=== PATIENT | female | born 2000 | race Caucasian/White ===

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

== ENCOUNTER 2019-01-16 14:25 | Observation (INO) | payer MEDICAID, SELFPAY ==
[2019-01-16 14:28] VITALS: BP 132/70; PULSE 90; RESP 16; TEMP 36.2; O2SAT 98
[2019-01-16 15:10] LABS: Abs Immature Grans 0.01 k/cumm (0.0-0.09); Absolute Basophil Count 0.02 k/cumm (0.0-0.2); Absolute Eosinophil Count 0.02 k/cumm (0.0-0.7); Absolute Lymphocyte Count 1.25 k/cumm (1.2-3.4); Absolute Neutrophil Count 4.35 k/cumm (1.2-6.7); Basophils % 0.3; Eosinophils % 0.3; HCT 36.1 % (36.0-46.0); HGB 11.4 g/dL (12.0-15.5); Immature Grans % 0.2; Lymphocytes % 19.7; Mean Corp. HGB Concentration 31.6 g/dL (32.0-36.0); Mean Corpuscular Volume 72.8 fL (80-95); Neutrophils % 68.5; Platelet Count 333 x1000/uL (130-400); RBC 4.96 m/cumm (4.00-5.20); RBC Distribution Width 19.3 % (11.7-14.6); White Blood Cell Count 6.35 k/cumm (4.4-10.8)
[2019-01-16 15:19] LABS: ALT 10 U/L (14-59); AST 12 U/L (15-37); Albumin 4.4 g/dL (3.4-5.0); Alkaline Phosphatase 42 U/L (46-116); Anion Gap 11.7 mmol/L (3-11); BUN 7 mg/dL (7-18); Bilirubin, Total 0.5 mg/dL (0.2-1.0); CO2 24.3 mmol/L (21.0-32.0); CREATININE 0.76 mg/dL (0.55-1.02); Calcium 9.2 mg/dL (8.5-10.1); Chloride 106 mmol/L (98-107); Glucose 86 mg/dL (74-106); Potassium 3.8 mmol/L (3.5-5.1); Sodium 142 mmol/L (136-145); Total Protein 7.7 g/dL (6.4-8.2)
--- NOTE | 2019-01-16 15:19 | ED.GENADUL_ITS ---
Discharge Plan Disposition Patient Disposition: [facility] INPATIENT Discharge Details Chief Complaint: DentalOral Clinical Impression: Acute suppurative parotitis, Cellulitis of face, Cellulitis of neck Admit Date/Time: 01/16/19 16:42 Admit Provider: Hernandez Coy Attending Provider: Hernandez Coy Primary Care Provider: Deondre Marion ED Provider: Jerel Torres Medical Decision Making <LIOR Figueroa Last Filed: 01/16/19 21:16> Patient is a 18-year-old female presenting today with chief complaint of left- sided facial pain and swelling. She reports that she began having pain on the left side of the neck just off of the mandibular angle 2 to 3 days ago. Since that time, the pain has progressively been increasing. She reports the pain is maximal when opening her mouth. Denies any pain with swallowing. Denies any fevers or chills. States yesterday she noted a small amount of swelling on the left side of her face but this greatly increased throughout the course the day today. Denies any pain when chewing, no dental pain. On exam, she has notable swelling on the left side of her face. This area is soft and fluctuant. Appears most consistent with parotiditis, no erythema or warmth. However, the pain is maximal more on her neck than over the parotid gland. With this, and the patient's pain with opening her mouth, I am concerned for possible abscess and feel that imaging is appropriate. She appears nontoxic, exam is otherwise benign. Vital signs within normal limits. UPT negative. Labs reviewed no significant abnormality noted. At the end of my shift, care transitioned to Jerel Torres PA-C with imaging pending. <LIOR Galeas - Last Filed: 01/16/19 22:00> This is a nontoxic-appearing 18-year-old female whom I received in signout from Susan Cheney PA-C at shift change. See her note for complete HPI and PE details. In brief, patient here for acute onset of left-sided facial swelling and tenderness. She denies any fevers. Her physical exam is concerning for focal tenderness along the inferior mandible and proximal lateral aspect of the neck. Her work-up here in the emergency department is significant for a CT scan of her head and neck which demonstrates findings concerning for left lateral neck/facial cellulitis with likely associated left parotiditis. She has no white count on her labs. No fever here. Up-to-date recommends aggressive IV therapy for roughly 48 hours and monitor for clinical response inpatient. Discussed these findings with the hospitalist Dr. Pedraza. He will admit at this time. Patient made aware. Unasyn 3 g IV given. HPI <LIOR Figueroa - Last Filed: 01/16/19 21:16> General Mode of arrival: ambulatory . Date/Time Provider Initiated Documentation: 01/16/19 14:41 . Limitations to Documentation: no limitations . Information obtained by: patient and RN notes reviewed . History of Present Illness 18 year old F presents to the emergency department with the chief complaint of left sided facial and neck pain, described as severe, with intensity rated at 8. Quality is described as aching, and is localized to the face and neck. Patient reports no radiation. Patient started experiencing this day(s) (3) and it has been constant (progressively worsening). No relieving factors improve symptom(s), No exacerbating factors reported . Patient notes no other symptoms.; denies diaphoresis, fever/chills, headaches, loss of appetite, nausea/vomiting, rash and shortness of breath. Patient did receive the following treatments prior to arrival, none Related Data Home Medications Medication Instructions Recorded Confirmed olanzapine 2.5 mg PO DAILY 01/16/19 01/16/19 Allergies Allergy/AdvReac Type Severity Reaction Status Date / Time No Known Allergies Allergy Unverified 01/16/19 14:31 General Stated Complaint: DentalOral CHARISMA: 4 Review of Systems <LIOR Figueroa - Last Filed: 01/16/19 21:16> Constitutional Constitutional: Reports as per HPI, Denies chills, Denies fatigue, Denies fever(s), Denies headache(s) and Denies poor appetite Eyes Eyes: Denies change in vision and Denies irritation ENT Ears, Nose, Mouth, and Throat: Reports as per HPI, Denies change in voice, Reports dental pain, Denies dysphagia, Denies vertigo, Denies dizziness, Denies dry mouth, Denies ear discharge, Denies otalgia, Reports facial pain, Denies headache(s), Denies hoarseness, Denies lip swelling, Denies mouth lesions, Denies mouth pain, Denies nasal congestion, Reports neck mass (feels a bump left side of neck), Reports neck pain, Denies odynophagia and Denies sore throat Cardiovascular Cardiovascular: Reports as per HPI and Denies chest pain Respiratory Respiratory: Reports as per HPI and Denies cough Gastrointestinal Gastrointestinal: Reports as per HPI, Denies dysphagia, Denies nausea, Denies odynophagia and Denies vomiting Musculoskeletal Musculoskeletal: Reports neck pain Integumentary/Breasts Skin/Breast: Reports as per HPI, Denies erythema, Denies rash and Denies skin pain Neurologic Neurologic: Reports as per HPI, Denies vertigo, Denies dizziness and Denies headache(s) Endocrine Endocrine: Denies fatigue Allergic/Immunologic Allergic/Immunologic: Denies lip swelling PFSH <LIOR Figueroa - Last Filed: 01/16/19 21:16> Medical History Depression (Chronic) Mood swings (Acute) Surgical History No significant past surgical history (Acute) Social History Smoking/Tobacco Use Status: Current every day Tobacco Type: cigarettes Years smoked: 3 Alcohol Intake: current Alcohol Intake frequency: holidays/special occasions only Drug use: Occasionally Substance use type: marijuana Do you feel safe at home: Yes Do you feel safe in your relationship?: Yes Exam <LIOR Figueroa - Last Filed: 01/16/19 21:16> Const General: cooperative, healthy appearing, comfortable, no acute distress, well developed and well groomed Nutritional Appearance: average body habitus and well nourished Orientation: alert and awake [facility] Head: normal to inspection, normocephalic and atraumatic Ears: hearing grossly normal bilaterally, external ears normal and TM's normal bilaterally General nose exam: external nose normal and nares normal Face and sinus: abnormal facial exam, sinuses nontender, face asymmetric, no crepitus, no ecchymosis, no erythema, fluctuance, tenderness and No dry mucous membranes Mouth: oral mucosae normal, lip normal, tongue normal, salivary ducts normal, oropharynx normal, normal salivary ducts, no trismus and No restricted motion Teeth and gingiva: dentition normal and gingiva normal Throat: posterior oropharynx abnormal (left tonsil is slightly larger than right), tonsils normal and uvula midline Eyes General: appearance normal, both eyes and all related structures Neck Neck: normal visual inspection, full ROM, supple, no anterior neck swelling and lymphadenopathy Resp Effort & Inspection: normal respiratory effort, able to speak in complete sentences and no respiratory distress Auscultation: clear to auscultation bilaterally, no rales, no rhonchi and no wheezes Cardio Rate: regular rate Rhythm: regular rhythm Heart Sounds: S1 normal and S2 normal Skin General skin exam: no rashes or lesions noted Trauma: no lacerations or abrasions Neuro General: alert and awake Cognition: normal cognition Speech: speech normal Gait: normal gait Psych Appearance: grossly normal and well kempt Mental Status: mental status grossly normal Speech and Movement: speech and movement normal Course <LIOR Figueroa - Last Filed: 01/16/19 21:16> Vital Signs Vital signs: Vital Signs Temperature 36.2 C L 01/16/19 14:28 Pulse 90 01/16/19 14:28 Respiratory Rate 16 01/16/19 14:28 Blood Pressure 132/70 01/16/19 14:28 Pulse Oximetry 98 01/16/19 14:28 Temperature 36.2 C L 01/16/19 14:28 Temperature Source Temporal Artery Scan 01/16/19 14:28 Pulse 90 01/16/19 14:28 Respiratory Rate 16 01/16/19 14:28 Respiratory Effort Non-Labored 01/16/19 14:28 Blood Pressure 132/70 01/16/19 14:28 Blood Pressure Position Sitting 01/16/19 14:28 Pulse Oximetry 98 01/16/19 14:28 Oxygen Delivery Method Room Air 01/16/19 14:28 Oxygen Flow Rate 0 01/16/19 14:28 Pain Level 8 01/16/19 14:28 Lab/Test Results Lab/Test Results: Laboratory Tests Range/Units 01/16/19 15:00 WBC (4.4-10.8) k/cumm 6.35 RBC (4.00-5.20) m/cumm 4.96 Hgb (12.0-15.5) g/dL 11.4 L Hct (36.0-46.0) % 36.1 MCV (80-95) fL 72.8 L MCH (27.0-33.0) pg 23.0 L MCHC (32.0-36.0) g/dL 31.6 L RDW (11.7-14.6) % 19.3 H Plt Count (130-400) x1000/uL 333 MPV (8.0-11.0) fL 9.0 Immature Gran % 0.2 Neutrophils % 68.5 Lymphocytes % 19.7 Monocytes % 11.0 Eosinophils % 0.3 Basophils % 0.3 Absolute Neutrophils (1.2-6.7) k/cumm 4.35 Absolute Lymphocytes (1.2-3.4) k/cumm 1.25 Absolute Monocytes (0.11-0.7) k/cumm 0.70 Absolute Eosinophils (0.0-0.7) k/cumm 0.02 Absolute Basophils (0.0-0.2) k/cumm 0.02 POC- Test(urine) Negative Sign Out <LIOR Figueroa - Last Filed: 01/16/19 21:16> Sign Out Data: Sign Out Comment: Care transitioned to Jerel Torres PA-C with imaging pending. Last updated by Susan Cheney PA at 01/16/19 16:01
[2019-01-16 15:36] LABS: Anisocytosis 2+; Diff Comment RBC Morph Reviewed; Microcytosis 3+
[2019-01-16] MEDS: Omnipaque 350 MG/ML 100 ML BTL IV (15:47)
--- NOTE | 2019-01-16 15:48 | DI.CT_ITS ---
EXAM: CT NECK W CLINICAL HISTORY: left sided facial swelling, pain in left side of n TECHNIQUE: Imaging Protocol: Axial computed tomography images with coronal and sagittal reformatted images were created and reviewed CONTRAST MATERIAL: Intravenous: Omnipaque 350 Contrast volume:100 mL contrast route:IV - Oral: No COMPARISON: No exams were available for comparison FINDINGS: Parotids/submandibular/thyroid gland: The left parotid gland shows heterogeneous enhancement and enl argement. The right parotid gland and submandibular glands are unremarkable. Lymphadenopathy: There is scattered lymph nodes seen along the level one to level three all measurin g less than 8 mm in short axis diameter which are physiologic in nature. Carotids/Jugular: Within normal limits. Soft tissues: The floor the mouth is unremarkable. The epiglottis and vocal cords are within normal limits. Images through both lung apices are unremarkable. There is fat stranding seen in the soft tis sues of the left lateral face and neck extending superiorly to the left periauricular region. No foc al fluid collection is seen to suggest an abscess. The pharynx, larynx, trachea and retropharyngeal space are all unremarkable. Lung apices are clear. The thyroid gland appears unremarkable. IMPRESSION: 1. Findings suggesting cellulitis of the left face and neck. 2. Heterogeneous enhancement and enlargement of the left parotid gland suspicious for parotiditis. 3. No evidence of an abscess. DATA REPOSITORY: All CT scans at this facility are submitted to the National Radiology Data Registry (NRDR) Dose Index Registry (DIR) with the [employer] ([employer]). RADIATION OPTIMIZATION: All CT scans at this facility use at least one of these dose optimization te chniques: automated exposure control; mA and/or kV adjustment per patient size (includes targeted exa ms where dose is matched to clinical indication); or iterative reconstruction.
[2019-01-16] MEDS: Normal Saline 1,000 ML 1000 ML IV (16:09)
[2019-01-16] MEDS: Ibuprofen 600 MG TAB PO (16:09)
[2019-01-16] MEDS: Acetaminophen 500 MG TAB 1000 MG PO (16:09)
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
[2019-01-16] MEDS: AMPICILLIN/SULBACTAM 3 GM in Normal Saline 100 ML IVPB (16:56)
[2019-01-16 18:15] VITALS: BP 121/67; PULSE 63; RESP 16; O2SAT 98
[2019-01-16 18:24] VITALS: BP 127/68; PULSE 98; RESP 16; TEMP 36.5; O2SAT 100
--- NOTE | 2019-01-16 19:47 | HPE_ITS ---
Date of service: 01/16/19 Time of Service: 17:30 Assessment and Plan Assessment and plan (1) Parotiditis: Status: Acute Assessment and plan: Continue Zosyn. Repeat CBC tomorrow morning. (2) Depression: Status: Chronic Assessment and plan: With anxiety. She has suffered significant loss. She is interested in finding a therapist. Continue Olanzapine. Help connect with resources in the community. (3) Nicotine dependence: Status: Acute Assessment and plan: Nicotine patch and inhaler PRN. Encourage smoking cessation. (4) DVT prophylaxis: Status: Acute Assessment and plan: Not indicated in this 18 year old ambulatory patient. (5) Discharge planning issues: Status: Acute Assessment and plan: She is a FULL code. This case was discussed with Dr. Coy who is in agreement. History of Present Illness History of Present Illness Chief Complaint: Left facial/jaw pain Narrative: Bronwyn is a very pleasant 18 year old female with a past medical history of depression and anxiety who presented to the ED with reports of left face/nec k/jaw pain, especially with opening and closing her mouth and swelling to her left face/neck. The discomfort began 2-3 days prior to her presentation. She denies any dental pain, she has been eating and drinking with no increased pain. She denies fevers or chills. In the ED, her labs did not show leukocytosis. She had a CT which revealed left lateral neck/face cellulitis with left parotiditis. She was given a dose of unasyn and admitted to the med/surg floor for further evaluation and management. She denied any other concerns such as headaches, dizziness, shortness of breath, coughing, wheezing, chest pain, palpitations, nausea, vomiting or diarrhea. She has been struggling with depression and anxiety and has recently been restarted on Olanzapine by her PCP. She reports suffering significant loss, her sister of a drug overdose in 07/2018, her friend within the last couple of m [place], both of drug overdoses. She also reports finding her father at age 14, he of a heart attack. She is interested in getting connected with a therapist. Review of Systems All systems reviewed & are unremarkable except as noted in HPI and below [facility] Medical History Depression (Chronic) Mood swings (Acute) Surgical History No significant past surgical history (Acute) Social History Smoking/Tobacco Use Status: Current every day Tobacco Type: cigarettes Years smoked: 3 Alcohol Intake: current Alcohol Intake frequency: holidays/special occasions only Drug use: Occasionally Substance use type: marijuana Do you feel safe at home: Yes Do you feel safe in your relationship?: Yes Meds Home Medications and Allergies Home Medications Medication Instructions Recorded Confirmed Type olanzapine 2.5 mg PO DAILY 01/16/19 01/16/19 History Allergies Allergy/AdvReac Type Severity Reaction Status Date / Time No Known Allergies Allergy Unverified 01/16/19 14:31 Exam Narrative Exam Narrative: General: 18 year old female, laying in stretcher, in NAD. Alert and oriented, pleasant and cooperative, in NAD. HEENT: left lateral neck along jaw line with swelling, no fluctuance, no significant erythema, mild tenderness on palpation. Pupils equal and round, EOMI, mucous membranes moist. Neck: as above, no JVD. Cardiovascular: RRR, no murmur. Respiratory: respirations even and unlabored, lung sounds clear bilaterally. GI: normactive bowel sounds, abdomen soft, nontender, nondistended. Extremities: No clubbing, cyanosis or edema. No calf swelling or tenderness. Results Labs Result diagrams: 01/17/19 06:15 01/17/19 06:15 Labs: Laboratory Results - last 24 hr 01/16/19 01/16/19 15:00 15:00 WBC 6.35 RBC 4.96 Hgb 11.4 L Hct 36.1 MCV 72.8 L MCH 23.0 L MCHC 31.6 L RDW 19.3 H Plt Count 333 MPV 9.0 Immature Gran % 0.2 Neutrophils % 68.5 Lymphocytes % 19.7 Monocytes % 11.0 Eosinophils % 0.3 Basophils % 0.3 Absolute Neutrophils 4.35 Absolute Lymphocytes 1.25 Absolute Monocytes 0.70 Absolute Eosinophils 0.02 Absolute Basophils 0.02 Differential Comment Rbc morph reviewed RBC Morphology See below Anisocytosis 2+ Microcytosis 3+ Sodium 142 Potassium 3.8 Chloride 106 Carbon Dioxide 24.3 Anion Gap 11.7 H BUN 7 Creatinine 0.76 Estimated GFR/1.73 m2 >= 60.00 Glucose 86 Calcium 9.2 Total Bilirubin 0.5 AST 12 L ALT 10 L Alkaline Phosphatase 42 L Total Protein 7.7 Albumin 4.4 Pathology Consult Spec Cancelled Last Vital Signs Temp 36.5 C 01/16/19 18:24 Pulse 98 H 01/16/19 18:24 Resp 16 01/16/19 18:24 BP 127/68 01/16/19 18:24 Pulse Ox 100 01/16/19 18:24
[2019-01-16] MEDS: Normal Saline 1,000 ML 75 ML IV (19:57)
[2019-01-16] MEDS: PIPERACILLIN/TAZO 3.375 GM in Normal Saline 50 ML IVPB (21:45)
[2019-01-17 00:30] VITALS: BP 105/61; PULSE 64; RESP 16; TEMP 37.3; O2SAT 94
[2019-01-17] MEDS: PIPERACILLIN/TAZO 3.375 GM in Normal Saline 50 ML IVPB ×2 (04:46→10:28)
[2019-01-17 04:50] VITALS: BP 85/45; PULSE 61; RESP 16; TEMP 36.6; O2SAT 98
[2019-01-17 07:20] VITALS: BP 90/54; PULSE 56; RESP 16; TEMP 37; O2SAT 95
[2019-01-17 07:36] LABS: HCT 30.4 % (36.0-46.0); HGB 9.6 g/dL (12.0-15.5); Mean Corp. HGB Concentration 31.6 g/dL (32.0-36.0); Mean Corpuscular Hemoglobin 23.3 pg (27.0-33.0); Mean Corpuscular Volume 73.8 fL (80-95); Mean Platelet Volume 9.6 fL (8.0-11.0); Platelet Count 281 x1000/uL (130-400); RBC 4.12 m/cumm (4.00-5.20); White Blood Cell Count 4.77 k/cumm (4.4-10.8)
[2019-01-17 07:45] VITALS: BP 102/60
[2019-01-17 07:47] LABS: Anion Gap 9.3 mmol/L (3-11); BUN 10 mg/dL (7-18); CO2 21.7 mmol/L (21.0-32.0); CREATININE 0.73 mg/dL (0.55-1.02); Calcium 8.2 mg/dL (8.5-10.1); Chloride 111 mmol/L (98-107); Glucose 110 mg/dL (74-106); Magnesium 2.1 mg/dL (1.8-2.4); Potassium 4.1 mmol/L (3.5-5.1); Sodium 142 mmol/L (136-145)
[2019-01-17 08:40] VITALS: O2SAT 95
[2019-01-17] MEDS: Acetaminophen 500 MG TAB 1000 MG PO ×2 (08:47)
[2019-01-17] MEDS: OLANZapine 2.5 MG TAB PO (08:47)
--- NOTE | 2019-01-17 09:57 | PDOC.CMIN ---
- If Service Date Differs Date of service: 01/17/19 Time of Service: 09:57 Care Management Initial Assess REASON FOR HOSPITALIZATION:: Parotiditis PAST MEDICAL HISTORY/PAST SURGICAL HISTORY:: Medical History: Depression (Chronic) and Mood swings (Acute). Surgical History: No significant past surgical history. PREVIOUS FUNCTIONAL STATUS/SOCIAL/FAMILY SUPPORTS:: Bronwyn reports she recently moved in with her boyfriend, Greg. The couple lives in [facility] [place]. Bronwyn states she does not know the address and she will contact [facility] to update her address in the future. 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 She names her boyfriend and co-workers as supports. Bronwyn is independent with her ADLs at baseline. CURRENT FUNCTIONAL STATUS:: Bronwyn is lying in bed when CM comes to meet with her. Her boyfriend is present in the room but is sleeping. Bronwyn is pleasant and easily engages in conversation. She reports feeling better and is looking forward to returning home. ADVANCE DIRECTIVES:: None on file. Has patient been provided with information about the portal?: No Did the patient sign up for the portal?: No CODE STATUS:: Full Code INSURANCE COVERAGE / FINANCIAL ISSUES:: Medicaid CURRENT HOME/COMMUNITY SERVICES/EQUIPMENT:: None. PRIMARY CARE PHYSICIAN:: Deondre Marion MD ([facility] [place] POTENTIAL DISCHARGE NEEDS:: Follow-up appointment with PCP. PATIENT/FAMILY EDUCATION NEEDS:: Review discharge plan, limitations, plan of care, including Ask Me Three and self-management. ANTICIPATED BARRIERS TO DISCHARGE:: None. TRANSPORTATION:: Via private vehicle by family or friends. PLAN:: Bronwyn will return home when medically cleared by provider. Transportation will be provided by family or friends via private vehicle. Anticipate no services needed at time of discharge. Bronwyn is provided a list of community mental health providers, along with their contact information. CM continues to follow.
--- NOTE | 2019-01-17 10:45 | W.NUTCONSULT ---
Date of service: 01/17/19 Time of Service: 10:46 Nutritional Consult ASSESSMENT: 18 year old female with acute periodontitis and depression. Currently following reulgar diet with adequate intake. BMI on low end of normal. Not currently considered at nutritional risk. MONITORING AND EVALUATION: will monitor po intake and weight trends and adjust meal plan as warranted Time Spent in Nutritional Counseling and Treatment: 0 time spent face to face
[2019-01-17 11:10] VITALS: BP 102/60; PULSE 50; RESP 18; TEMP 37.3; O2SAT 98
--- NOTE | 2019-01-17 12:43 | W.PM.DS.N ---
Date of service: 01/17/19 Time of Service: 12:43 DS: Diagnosis Discharge Diagnosis (1) Parotiditis: Status: Acute (2) Depression: Status: Chronic (3) Nicotine dependence: Status: Acute Discharge Plan Disposition Patient Disposition: HOME Condition: Improving Discharge Details Chief Complaint: DentalOral Clinical Impression: Acute suppurative parotitis, Cellulitis of face, Cellulitis of neck Reason For Visit: PAROTIDITIS Admit Date/Time: 01/16/19 16:42 Admit Provider: Hernandez Coy Attending Provider: Hernandez Coy Primary Care Provider: Deondre Marion ED Provider: Jerel Torres [facility] Course Hospital Course: Bronwyn is a very pleasant 18 year old female with a past medical history of depression and anxiety who presented to the ED with reports of left lateral face/neck/jaw pain, especially with opening and closing her mouth and swelling to her left lateral face/neck along the jaw line. The discomfort began 2-3 days prior to her presentation. She denied any dental pain, she had been eating and drinking with no increased pain. She denied fevers or chills. In the ED, her labs did not show leukocytosis. She had a CT which revealed left lateral neck/face cellulitis with left parotiditis, no abscess. She was given a dose of unasyn and admitted to the med/surg floor for further evaluation and management. By the following morning, her swelling had decreased, she was able to open and close her mouth without a significant amount of pain. She was eating and drinking and tolerating her diet. She remained afebrile, no leukocytosis, no headache. She is discharged home on oral antibiotics. She will require a 10-14 day course. She will follow up with her PCP next week, prior to the end of her antibiotics for evaluation. Bronwyn has suffered a significant amount of loss including the of her sister and friend within the last 6 months due to drug overdose, as well as the of her father at age 14. She is interested in therapy, care management is working to get her connected with a therapist. She is transitioned to augmentin to compete a 10 day course and is discharged home with follow up in place. Her antibiotic course may need to be extended if this is not resolved. Home Meds and New Rx's Prescriptions: New amoxicillin-pot clavulanate [Augmentin] 875-125 mg tablet 1 tab PO BID Qty: 18 RF: 0 Continued olanzapine 2.5 mg Tablet 2.5 mg PO DAILY RF: 0 Discharge Instructions Instructions: Cellulitis (DC) Additional Instructions: You are being treated for Parotitis. You need to complete your antibiotics. Follow up with your PCP as scheduled. They may decide to add more days of antibiotic treatment. Follow up with the therapist as discussed. Take care! Stand Alone Forms: Nursing Discharge Form Referrals: Deondre Marion [Primary Care Provider] - 01/22/19 1:00 pm Activity:: Activity as Tolerated Equipment/Supplies:: No Equipment Needed Diet:: As Tolerated Discharge Orders Discharge Orders: Discharge Order (Routine); Ordered 01/17/19 Ordered By: Mariana Schneider DS: Summary Status at Discharge Functional status at discharge: independent ambulation Overall status at discharge: patient is progressing back to baseline Mental Status: mental status grossly normal Speech and Movement: speech and movement normal Mood: congruent mood Affect: normal affect Exam Narrative Exam Narrative: General: 18 year old female, laying in stretcher, in NAD. Alert and oriented, pleasant and cooperative, in NAD. HEENT: left lateral neck along jaw line with swelling, no fluctuance, no significant erythema, mild tenderness on palpation. Pupils equal and round, EOMI, mucous membranes moist. Neck: as above, no JVD. Cardiovascular: RRR, no murmur. Respiratory: respirations even and unlabored, lung sounds clear bilaterally. GI: normactive bowel sounds, abdomen soft, nontender, nondistended. Extremities: No clubbing, cyanosis or edema. No calf swelling or tenderness. Psych Mental Status: mental status grossly normal Speech and Movement: speech and movement normal Mood: congruent mood Affect: normal affect DS: Data Vitals/I&O Vitals and I&O: Vital Signs Temperature 37 C 01/17/19 07:20 Temperature Source Tympanic 01/17/19 07:20 Pulse 56 L 01/17/19 07:20 Pulse Rhythm Regular 01/17/19 08:40 Respiratory Rate 16 01/17/19 07:20 Respiratory Effort Non-Labored 01/17/19 08:40 Respiratory Depth Normal 01/17/19 08:40 Respiratory Pattern Normal 01/17/19 08:40 Blood Pressure 102/60 01/17/19 07:45 Blood Pressure Position Sitting 01/16/19 14:28 Pulse Oximetry 95 01/17/19 08:40 Oxygen Delivery Method Room Air 01/17/19 08:40 Oxygen Flow Rate 0 01/17/19 08:40 Pain Level 5 01/17/19 08:47 Intake & Output 01/16/19 01/17/19 01/17/19 23:59 11:59 23:59 Intake Total 1350 / 1350 1290 / 1290 Output Total 1200 / 1200 Balance 1350 / 1350 90 / 90 Weight 54.662 kg Intake: IV 1150 / 1150 1050 / 1050 Oral 200 / 200 240 / 240 Output: Urine 1200 / 1200 Other: Urine Color Yellow Urine Appearance Clear Clear Urine Odor None Voiding Methods Toilet Data Completed and Pending Completed studies during hospitalization [Text1]: 01/16/2019: EXAM: CT NECK W CLINICAL HISTORY: left sided facial swelling, pain in left side of n TECHNIQUE: Imaging Protocol: Axial computed tomography images with coronal and sagittal reformatted images were created and reviewed CONTRAST MATERIAL: Intravenous: Omnipaque 350 Contrast volume:100 mL contrast route:IV - Oral: No COMPARISON: No exams were available for comparison FINDINGS: Parotids/submandibular/thyroid gland: The left parotid gland shows heterogeneous enhancement and enlargement. The right parotid gland and submandibular glands are unremarkable. Lymphadenopathy: There is scattered lymph nodes seen along the level one to level three all measuring less than 8 mm in short axis diameter which are physiologic in nature. Carotids/Jugular: Within normal limits. Soft tissues: The floor the mouth is unremarkable. The epiglottis and vocal cords are within normal limits. Images through both lung apices are unremarkable. There is fat stranding seen in the soft tissues of the left lateral face and neck extending superiorly to the left periauricular region. No focal fluid collection is seen to suggest an abscess. The pharynx, larynx, trachea and retropharyngeal space are all unremarkable. Lung apices are clear. The thyroid gland appears unremarkable. IMPRESSION: 1. Findings suggesting cellulitis of the left face and neck. 2. Heterogeneous enhancement and enlargement of the left parotid gland suspicious for parotiditis. 3. No evidence of an abscess. Labs on day of discharge: Labs from last 24 hours 01/17/19 01/17/19 01/16/19 06:15 06:15 15:00 WBC 4.77 6.35 RBC 4.12 4.96 Hgb 9.6 L 11.4 L Hct 30.4 L 36.1 MCV 73.8 L 72.8 L MCH 23.3 L 23.0 L MCHC 31.6 L 31.6 L RDW 19.0 H 19.3 H Plt Count 281 333 MPV 9.6 9.0 Immature Gran % 0.2 Neutrophils % 68.5 Lymphocytes % 19.7 Monocytes % 11.0 Eosinophils % 0.3 Basophils % 0.3 Absolute Neutrophils 4.35 Absolute Lymphocytes 1.25 Absolute Monocytes 0.70 Absolute Eosinophils 0.02 Absolute Basophils 0.02 Differential Comment Rbc morph reviewed RBC Morphology See below Anisocytosis 2+ Microcytosis 3+ Sodium 142 Potassium 4.1 Chloride 111 H Carbon Dioxide 21.7 Anion Gap 9.3 BUN 10 Creatinine 0.73 Estimated GFR/1.73 m2 >= 60.00 Glucose 110 H Calcium 8.2 L Magnesium 2.1 Total Bilirubin AST ALT Alkaline Phosphatase Total Protein Albumin Pathology Consult Spec Cancelled Path Cons Comment See comment 01/16/19 15:00 WBC RBC Hgb Hct MCV MCH MCHC RDW Plt Count MPV Immature Gran % Neutrophils % Lymphocytes % Monocytes % Eosinophils % Basophils % Absolute Neutrophils Absolute Lymphocytes Absolute Monocytes Absolute Eosinophils Absolute Basophils Differential Comment RBC Morphology Anisocytosis Microcytosis Sodium 142 Potassium 3.8 Chloride 106 Carbon Dioxide 24.3 Anion Gap 11.7 H BUN 7 Creatinine 0.76 Estimated GFR/1.73 m2 >= 60.00 Glucose 86 Calcium 9.2 Magnesium Total Bilirubin 0.5 AST 12 L ALT 10 L Alkaline Phosphatase 42 L Total Protein 7.7 Albumin 4.4 Pathology Consult Spec Path Cons Comment [facility] Medical History Depression (Chronic) Mood swings (Acute) Surgical History No significant past surgical history (Acute) Social History Smoking/Tobacco Use Status: Current every day Tobacco Type: cigarettes Years smoked: 3 Alcohol Intake: current Alcohol Intake frequency: holidays/special occasions only Drug use: Occasionally Substance use type: marijuana Do you feel safe at home: Yes Do you feel safe in your relationship?: Yes
--- NOTE | 2019-01-17 17:28 | PDOC.CMDIS ---
- If Service Date Differs Date of service: 01/17/19 Time of Service: 17:28 LACE Index Scoring Tool - Questions: Acuity (Admit via E.D.?): Yes E.D. Visits: 5 Care Management Discharge Reason for Hospitalization: Parotiditis Discharge Plan: Bronwyn is being discharged home with no new services. She will follow up with her PCP as directed. She was provided a list of community mental health providers, along with their contact information. Patient/Family Education Needs: Nursing will review discharge instructions with Bronwyn re medications and follow up appointments. Bronwyn is able to verbalize reason for hospitalization and how to manage care at home.
== END 2019-01-17 15:46 | disposition home or self-care (01) ==
LOC: ER 17:58 → MS 18:17
PROVIDERS: Nurse Practitioner; Physician Assistant; Admitting Provider Family Medicine; Emergency Provider Physician Assistant; PCP Family Medicine; Visit Provider Family Medicine
DX: K11.21 Acute sialoadenitis (principal); F32.9 Major depressive disorder, single episode, unspecified; F17.210 Nicotine dependence, cigarettes, uncomplicated; F43.8 Other reactions to severe stress; Z63.4 Disappearance and death of family member
CPT/HCPCS: 36415; 70491; 80048; 80053; 81025; 85027; 96361; 96365; 99219; 99285; 83735; 85025; 99217; G0378; J0295; J2543; J3490

== ENCOUNTER 2019-11-15 15:08 | Emergency (ER) | payer MEDICAID, SELFPAY ==
[2019-11-15] VITALS (9 sets, daily range): BP systolic 112–126; BP diastolic 50–80; PULSE 58–83; RESP 18; TEMP 37.3; O2SAT 98–100
--- NOTE | 2019-11-15 15:24 | ED.GENADUL_ITS ---
Discharge Plan Disposition Patient Disposition: HOME Condition: Good Discharge Details Clinical Impression: Vaginal bleeding Primary Care Provider: Deondre Marion ED Provider: Samantha Garcia Home Meds and New Rx's Prescriptions: Continued olanzapine 2.5 mg Tablet 2.5 mg PO DAILY RF: 0 No Action amoxicillin-pot clavulanate [Augmentin] 875-125 mg tablet 1 tab PO BID Qty: 18 RF: 0 Discharge Instructions Instructions: Dysfunctional Uterine Bleeding (ED) Additional Instructions: take usual medications drink 6-8 glasses of water to stay well hydrated. no work today Stand Alone Forms: Work Release Referrals: Deondre Marion [Primary Care Provider] - Discharge Data Discharge Date/Time-TO BE ENTERED AT DEPARTURE: 11/15/19 16:50 Medical Decision Making <Virginia Cox - Last Filed: 11/16/19 08:45> 19-year-old female presents to the ED with chief complaint of vaginal bleeding which began yesterday. Patient states she started with what she thought was a normal menstrual period which turned into heavy bleeding. She reports soaking through multiple tampons and pads an hour she said that she has soaked through 10 pairs of pants since this morning. She describes bright red bleeding with c lots. Yesterday she had some left lower quadrant abdominal pain which has since resolved. She also endorses nausea for the last 3 weeks. She reports previously being on the Depo-Provera shot which she stopped approximately 1 month ago. She is alert and oriented x3. 1604: Pelvic exam performed with Myriam RN as witness patient tolerated well. Small amount of ooze noted from the cervical office, no lesions noted small clot noted in vaginal canal. Slight left lower quadrant tenderness with palpation. At this time labs are pending. CBC, CMP, hCG quant, ABO Rh is pending at this time Urine is negative. Will send hCG quant to confirm negative . [facility] pending labs and disposition. Discussed patient case and details with her, verbalized understanding. <Samantha Garcia NP - Last Filed: 11/15/19 16:45> labs reviewed an no abnormalities. patient is stable and ready for discharge to home. she is requesting a work note. Medical Records Medical records reviewed: Yes I reviewed the patient's medical records. Lab Data Lab results reviewed: Yes I reviewed the patient's lab results. Lab results narrative: Laboratory Tests Range/Units 11/15/19 11/15/19 11/15/19 15:35 15:35 15:35 WBC (4.4-10.8) 10^3/uL 5.46 RBC (3.93-5.22) 10^6/uL 4.67 Hgb (11.2-15.7) g/dL 14.3 Hct (36.0-46.0) % 42.7 MCV (80-95) fL 91.4 MCH (27.0-33.0) pg 30.6 MCHC (32.0-36.0) % 33.5 RDW (11.7-14.6) % 12.7 Plt Count (130-400) 10^3/uL 288 MPV (8.0-11.0) fL 8.9 Immature Gran % 0.2 Neutrophils % 64.3 Lymphocytes % 24.9 Monocytes % 9.7 Eosinophils % 0.5 Basophils % 0.4 Nucleated RBC % % 0 Absolute Neutrophils (1.2-6.7) 10^3/uL 3.51 Absolute Lymphocytes (1.2-3.4) 10^3/uL 1.36 Absolute Monocytes (0.1-0.8) 10^3/uL 0.53 Absolute Eosinophils (0.0-0.7) 10^3/uL 0.03 Absolute Basophils (0.0-0.2) 10^3/uL 0.02 Sodium (136-145) mmol/L 140 Potassium (3.5-5.1) mmol/L 3.7 Chloride (98-107) mmol/L 102 Carbon Dioxide (21.0-32.0) mmol/L 25.5 Anion Gap (3-11) mmol/L 12.5 H BUN (7-18) mg/dL 11 Creatinine (0.55-1.02) mg/dL 0.63 Estimated GFR/1.73 m2 (mL/min/1.73m2) >= 60.00 Glucose (74-106) mg/dL 85 Calcium (8.5-10.1) mg/dL 8.9 Total Bilirubin (0.2-1.0) mg/dL 0.7 AST (15-37) U/L 28 ALT (14-59) U/L 43 Alkaline Phosphatase (46-116) U/L 47 Total Protein (6.4-8.2) g/dL 7.6 Albumin (3.4-5.0) g/dL 4.5 Beta HCG, Quant (1-3) mIU/mL 3 Patient ABO/Rh O Positive HPI <Virginia Cox - Last Filed: 11/16/19 08:45> General Mode of arrival: wheelchair . Date/Time Provider Initiated Documentation: 11/15/19 15:10 . Limitations to Documentation: no limitations . Information obtained by: patient . HPI Narrative: 19-year-old female presents to the ED with chief complaint of vaginal bleeding which began yesterday. Patient states she started with what she thought was a normal menstrual period which turned into heavy bleeding. She reports soaking through multiple tampons and pads an hour she said that she has soaked through 10 pairs of pants since this morning. She describes bright red bleeding with clots. Yesterday she had some left lower quadrant abdominal pain which has since resolved. She also endorses nausea for the last 3 weeks. She reports previously being on the Depo- Provera shot which she stopped approximately 1 month ago. She is alert and oriented x3. Related Data Home Medications Medication Instructions Recorded Confirmed olanzapine 2.5 mg PO DAILY 01/16/19 01/16/19 amoxicillin-pot clavulanate 1 tab PO BID #18 tab 01/17/19 [Augmentin] Previous Rx's Medication Instructions Recorded amoxicillin-pot clavulanate 1 tab PO BID #18 tab 01/17/19 [Augmentin] Allergies Allergy/AdvReac Type Severity Reaction Status Date / Time No Known Allergies Allergy Unverified 01/16/19 14:31 General Stated Complaint: [employer] CHARISMA: 3 Review of Systems <Virginia Cox - Last Filed: 11/16/19 08:45> Narrative: Constitutional: Negative for weight loss, alert and oriented, well groomed, normal body habitus, appears comfortable. HEENT: Denies trauma, headaches, blurry vision, nasal discharge, sore throat, trouble swallowing. Chest: Denies chest pain, palpitations, irregular rhythm, hypertension. Respiratory: Denies Shortness of breath, cough, hemoptysis. GI: Denies , nausea, vomiting, diarrhea, constipation. Left lower quadrant abdominal pain which has since resolved. : Denies dysuria, hematuria, flank pain, rectal bleeding. Positive vaginal bleeding. Neuro: Denies dizziness, blurry vision, weakness, syncope, headache or facial numbness. Hematologic: Denies easy bruising, intolerance to heat or cold, hair loss. PFSH <Virginia Cox - Last Filed: 11/16/19 08:45> Medical History (Updated 11/15/19 @ 16:41 by Samantha Garcia NP) Depression Mood swings Surgical History No significant past surgical history Social History Smoking/Tobacco Use Status: Current every day Tobacco Type: cigarettes Years smoked: 3 Alcohol Intake: current Alcohol Intake frequency: holidays/special occasions only Drug use: Occasionally Substance use type: marijuana Do you feel safe at home: Yes Do you feel safe in your relationship?: Yes Exam <Virginia Cox - Last Filed: 11/16/19 08:45> Narrative Exam Narrative: Constitutional: Alert and oriented x3. Appears stated age. Normal body habitus. Head: Normocephalic, no trauma. Eyes: Pupils PERRLA, Red reflex noted, EOM's intact. Eyelids symmetrical without lesions, discharge, or swelling. ENT: Bilateral TM's WNL, External ear normal to inspection, no mastoid TTP, swelling, or erythema, Nasal turbinates WNL, no nasal discharge. Normal dentition, Posterior pharynx WNL, no exudate. Chest: RRR, Normal S1, S2, distal pulses intact. Resp: Lungs clear to auscultation bilaterally, no wheezes, rales, or rhonchi. Abdomen: Mildly tender to palpation bilateral supra pubic tenderness. Musculoskeletal: Normal gait, 5/5 strength to all four extremities. Skin: No suspicious rashes or lesions. Capillary refill less than 2 sec. Neurologic: Cranial nerves II-XII intact. Alert and oriented x 3. DTR's intact. Hematologic/Lymphatic: No ecchymosis, no lymphadenopathy. External Female Exam: normal external appearance Speculum Exam - Vagina: normal appearance of the vagina and vaginal bleeding Speculum Exam - Cervix: normal appearance of the cervix and nontender Bimanual Exam- Vagina & Uterus: No tender, non-tender and no cervical motion tenderness Bimanual Exam- Adnexa, other: tender on the left OB/External & Speculum: bleeding and vaginal bleeding Course <Virginia Cox - Last Filed: 11/16/19 08:45> Vital Signs Vital signs: Vital Signs Pulse 80 11/15/19 15:14 Respiratory Rate 18 11/15/19 15:14 Blood Pressure 126/68 11/15/19 15:14 Pulse Oximetry 98 11/15/19 15:14 Temperature Source Skin 11/15/19 15:14 Pulse 80 11/15/19 15:14 Respiratory Rate 18 11/15/19 15:14 Respiratory Effort Non-Labored 11/15/19 15:21 Blood Pressure 126/68 11/15/19 15:14 Blood Pressure Position Sitting 11/15/19 15:14 Pulse Oximetry 98 11/15/19 15:14 Oxygen Delivery Method Room Air 11/15/19 15:14 Oxygen Flow Rate 0 11/15/19 15:14 Sign Out <Virginia Cox - Last Filed: 11/16/19 08:45> Sign Out Data: Sign Out Comment: Pending labs and disposition Last updated by Virginia Cox at 11/15/19 16:17
[2019-11-15] MEDS: Normal Saline 1,000 ML 1000 ML IV (15:44)
[2019-11-15 15:48] LABS: Abs Immature Grans 0.01 10^3/uL (0.0-0.06); Absolute Basophil Count 0.02 10^3/uL (0.0-0.2); Absolute Eosinophil Count 0.03 10^3/uL (0.0-0.7); Absolute Lymphocyte Count 1.36 10^3/uL (1.2-3.4); Absolute Monocyte Count 0.53 10^3/uL (0.1-0.8); Absolute Neutrophil Count 3.51 10^3/uL (1.2-6.7); Basophils % 0.4; Eosinophils % 0.5; HCT 42.7 % (36.0-46.0); HGB 14.3 g/dL (11.2-15.7); Immature Grans % 0.2; Lymphocytes % 24.9; MCH 30.6 pg (27.0-33.0); MCHC 33.5 % (32.0-36.0); MCV 91.4 fL (80-95); MPV 8.9 fL (8.0-11.0); Monocytes % 9.7; Neutrophils % 64.3; Nucleated RBC 0 %; Platelet Count 288 10^3/uL (130-400); RBC 4.67 10^6/uL (3.93-5.22); RDW 12.7 % (11.7-14.6); RDW-SD 42.6 fL; WBC 5.46 10^3/uL (4.4-10.8)
[2019-11-15 16:19] LABS: ALT 43 U/L (14-59); AST 28 U/L (15-37); Albumin 4.5 g/dL (3.4-5.0); Alkaline Phosphatase 47 U/L (46-116); Anion Gap 12.5 mmol/L (3-11); BUN 11 mg/dL (7-18); Bilirubin, Total 0.7 mg/dL (0.2-1.0); CO2 25.5 mmol/L (21.0-32.0); CREATININE 0.63 mg/dL (0.55-1.02); Calcium 8.9 mg/dL (8.5-10.1); Chloride 102 mmol/L (98-107); Glucose 85 mg/dL (74-106); HCG Quant, Pregnancy 3 mIU/mL (1-3); Potassium 3.7 mmol/L (3.5-5.1); Sodium 140 mmol/L (136-145); Total Protein 7.6 g/dL (6.4-8.2)
== END 2019-11-15 16:50 | disposition home or self-care (01) ==
PROVIDERS: Registered Nurse Emergency; Emergency Provider Nurse Practitioner Acute Care; PCP Family Medicine
DX: N93.8 Other specified abnormal uterine and vaginal bleeding (principal); R10.32 Left lower quadrant pain
CPT/HCPCS: 36415; 80053; 81025; 86850; 86900; 86901; 96360; 99284; 84702; 85025

== ENCOUNTER 2020-01-08 18:51 | Emergency (ER) | payer MEDICAID, SELFPAY ==
[2020-01-08 18:56] VITALS: BP 136/85; PULSE 74; RESP 16; TEMP 36.7; O2SAT 98
[2020-01-08 19:03] VITALS: RESP 16
--- NOTE | 2020-01-08 19:21 | ED.GENADUL_ITS ---
Discharge Plan Disposition Patient Disposition: HOME Condition: Improving Discharge Details Clinical Impression: Anxiety reaction Primary Care Provider: Deondre Marion ED Provider: Mina White Home Meds and New Rx's Prescriptions: No Action escitalopram oxalate 10 mg Tablet 10 mg PO DAILY RF: 0 Discharge Instructions Instructions: Panic Attack (ED) Additional Instructions: Home to rest this evening. Please followup with Dr Marion in the next 1-2 weeks for recheck. Return for any acute concerns. Medical Decision Making 19-year-old female who states she has history of anxiety and depression. She started escitalopram oxalate for the 1st time today. She presents to the ER complaining of feeling tightness in her chest, dry mouth, tightness of her throat, feels like her skin is crawling. She has otherwise been well. Her exam is reassuring and notable only for an anxious affect. Patient given Ativan 0.5 mg x 1 by mouth. Observed. HPI General Mode of arrival: ambulatory . Date/Time Provider Initiated Documentation: 01/08/20 19:07 . Limitations to Documentation: no limitations . Information obtained by: patient . History of Present Illness 19 year old F presents to the emergency department with the chief complaint of Anxiety, described as moderate, Quality is described as constant, and is localized to the head and chest. Patient started experiencing this hour(s) and it has been constant. No relieving factors improve symptom(s), No exacerbating factors reported . Patient notes loss of appetite and other (Dry mouth); denies confusion, chest pain, cough, headaches, shortness of breath, syncope and weakness. Patient did receive the following treatments prior to arrival, none Related Data Home Medications Medication Instructions Recorded Confirmed escitalopram oxalate 10 mg PO DAILY 01/08/20 01/08/20 Allergies Allergy/AdvReac Type Severity Reaction Status Date / Time No Known Allergies Allergy Unverified 01/16/19 14:31 General Stated Complaint: Anxiety CHARISMA: 4 Review of Systems Narrative: Start the citalopram today 10 mg. Recently well. No other complaints. [facility] Medical History (Updated 01/08/20 @ 19:31 by Mina White MD) Depression Mood swings Surgical History No significant past surgical history Social History Smoking/Tobacco Use Status: Current every day Tobacco Type: cigarettes Years smoked: 3 Smoking risk assessment performed?: Yes Alcohol Intake: current Alcohol Intake frequency: holidays/special occasions only Drug use: Occasionally Substance use type: marijuana Do you feel safe at home: Yes Do you feel safe in your relationship?: Yes Exam Narrative Exam Narrative: GEN: awake, alert, oriented 3. Pleasant, well groomed, interactive. Anxious. HEAD: Normocephalic, atraumatic ENT: Mucous membranes moist, oropharynx unremarkable, External ear exam unremarkable EYES: PERRL, EOMI NECK: Full ROM, no ACOSTA, no menigismus CHEST/RESP: Nontender, clear to auscultation bilateral, no wheeze/rhonchi/rales CARDIOVASCULAR: RRR, no murmur, rub buddy. 2+ Rad pulse bilateral ABDOMEN: Soft, nontender, no mass. +Bowel sounds EXT: Full ROM, no edema, no rash Neuro: Grossly normal neurologic exam, conversant, interactive. Psych: Speech fluent, thoughts congruent, affect anxious Course Vital Signs Vital signs: Vital Signs Temperature 36.7 C 01/08/20 18:56 Pulse 74 01/08/20 18:56 Respiratory Rate 16 01/08/20 18:56 Blood Pressure 136/85 01/08/20 18:56 Pulse Oximetry 98 01/08/20 18:56 Temperature 36.7 C 01/08/20 18:56 Temperature Source Skin 01/08/20 18:56 Pulse 74 01/08/20 18:56 Respiratory Rate 16 01/08/20 19:03 Respiratory Effort Non-Labored 01/08/20 19:03 Respiratory Depth Normal 01/08/20 19:03 Respiratory Pattern Normal 01/08/20 19:03 Blood Pressure 136/85 01/08/20 18:56 Blood Pressure Position Sitting 01/08/20 18:56 Pulse Oximetry 98 01/08/20 18:56 Oxygen Delivery Method Room Air 01/08/20 18:56 Oxygen Flow Rate 0 01/08/20 18:56
[2020-01-08] MEDS: LORazepam 0.5 MG TAB PO (19:25)
--- NOTE | 2020-01-08 19:50 | NUR.NOTE ---
Nursing Note: Patient visibly less restless. Laughing and smiling. Reports feeling more calm. Dr Cindy ratliff.
[2020-01-08 20:16] VITALS: BP 142/92; PULSE 86; RESP 16; O2SAT 98
== END 2020-01-08 20:20 | disposition home or self-care (01) ==
PROVIDERS: Emergency Provider Emergency Medicine; PCP Family Medicine
DX: F41.0 Panic disorder [episodic paroxysmal anxiety] (principal); F41.8 Other specified anxiety disorders; R07.89 Other chest pain; R68.2 Dry mouth, unspecified
CPT/HCPCS: 99283

== ENCOUNTER 2020-08-27 23:38 | Emergency (ER) | payer MEDICAID, SELFPAY ==
[2020-08-27 23:41] VITALS: BP 133/80; PULSE 78; RESP 16; TEMP 36.4; O2SAT 99
--- NOTE | 2020-08-27 23:45 | DI.RAD_ITS ---
Exam(s) XR RIBS RT W PA LAT CHEST EXAM: XR RIBS RT W PA LAT CHEST CLINICAL HISTORY: Right anterior rib pain TECHNIQUE: 2D digital imaging was performed. COMPARISON: No exams were available for comparison FINDINGS: MEDIASTINUM: Normal. HEART: Normal. PULMONARY VASCULATURE: Normal. LUNGS: Clear. PLEURAL SPACE: No pleural effusion or pneumothorax. BONE:Normal. RIGHT RIBS: Normal. OTHER FINDINGS:Normal. IMPRESSION: 1. No acute pulmonary findings. 2. Unremarkable right ribs. DATA REPOSITORY: RADIATION DOSE DELIVERED:
--- NOTE | 2020-08-27 23:59 | W.ED.GENAD ---
Discharge Plan Disposition Patient Disposition: HOME Condition: Stable Discharge Details Clinical Impression: Acute costochondritis Primary Care Provider: Deondre Marion ED Provider: Virginia Cox Home Meds and New Rx's Prescriptions: No Action escitalopram oxalate 10 mg Tablet 10 mg PO DAILY RF: 0 Discharge Instructions Instructions: Costochondritis (ED) Additional Instructions: Alternate ice and heat. Please take Tylenol or Ibuprofen with food every 4-6 hours as needed for pain and swelling. You may also try lidocaine patches which are available [id number]. Follow up with primary care provider in 3-5 days. Return to ED sooner if any worsening or concerns. Increase oral fluids. Referrals: Deondre Marion [Primary Care Provider] - Discharge Data Discharge Date/Time-TO BE ENTERED AT DEPARTURE: 08/28/20 00:50 Medical Decision Making 20-year-old female presents to the ER with chief complaint of right rib pain which began approximately 2 hours prior to arrival this evening. Patient states that she has fallen a couple of times over the last few weeks injuring her rib cage. She was not seen at the time for the. She reports that tonight she was moving some furniture and doing some heavy lifting when she began with a sharp pain to her right rib area. Pain is intermittent worsens with palpation, deep breathing, and movement. Patient endorses of history of anxiety and does appear anxious upon initial exam. She has a past medical history of depression and mood swings, she is a current every day smoker and does endorse marijuana use. She took some wellness pain reliever (possibly Tylenol) 2 hours prior to arrival. X-ray Right rib series with PA chest and Lorazepam 0.5 mg PO and Ibuprofen 400mg PO ordered. 0005: Patient declined lorazepam and ibuprofen. Imaging protocol: XR Right ribs. Views: 2 views. COMPARISON: No relevant prior studies available. FINDINGS: Bones/joints: No evidence of fracture in the right ribs. Intercostal spaces are normal. Negative for expansile or destructive lesion. Soft tissues: No abnormalities. IMPRESSION: No evidence of right rib fracture. Imaging protocol: XR of the chest. Views: 2 views. COMPARISON: No relevant prior studies available. FINDINGS: Lungs: Lungs are clear and well-expanded. Pulmonary vessels are not congested. Pleural spaces: Unremarkable. No pleural effusion. No pneumothorax. Heart/Mediastinum: Heart size normal. Normal mediastinal contours. Bones/joints: Clavicles appear intact. No evidence of thoracic spine compression fracture. Soft tissues: No evidence of chest wall emphysema. IMPRESSION: Negative for pneumothorax. No acute cardiopulmonary abnormality. Patient discharged with home care instructed to try lidocaine patches and follow-up with PCP alternate ice and heat. Patient is hemodynamically stable alert and oriented throughout her stay. This text was generated using [employer] dictation system, please disregard any oddities of phrase or misspellings. HPI General Mode of arrival: ambulatory. Date/Time Provider Initiated Documentation: 08/27/20 23:45. Limitations to Documentation: no limitations. Information obtained by: patient. HPI Narrative: 20-year-old female presents to the ER with chief complaint of right rib pain which began approximately 2 hours prior to arrival this evening. Patient states that she has fallen a couple of times over the last few weeks injuring her rib cage. She was not seen at the time for the. She reports that tonight she was moving some furniture and doing some heavy lifting when she began with a sharp pain to her right rib area. Pain is intermittent worsens with palpation, deep breathing, and movement. Patient endorses of history of anxiety and does appear anxious upon initial exam. She has a past medical history of depression and mood swings, she is a current every day smoker and does endorse marijuana use. She took some wellness pain reliever (possibly Tylenol) 2 hours prior to arrival. Related Data Home Medications Medication Instructions Recorded Confirmed escitalopram oxalate 10 mg PO DAILY 01/08/20 01/08/20 Allergies Allergy/AdvReac Type Severity Reaction Status Date / Time No Known Allergies Allergy Unverified 08/27/20 23:46 General Stated Complaint: Chest/Rib CHARISMA: 3 Review of Systems All systems reviewed & are unremarkable except as noted in HPI and below Cardiovascular Cardiovascular: Reports chest pain, Reports chest pain with activity and Denies dyspnea Respiratory Respiratory: Reports as per HPI, Denies cough, Denies hemoptysis and Denies dyspnea Musculoskeletal Musculoskeletal: Reports as per HPI Psychiatric Psychiatric: Reports anxiety [facility] Medical History (Updated 08/28/20 @ 00:39 by Virginia Cox) Depression Mood swings Surgical History No significant past surgical history Social History Smoking/Tobacco Use Status: Current every day Tobacco Type: cigarettes Years smoked: 3 Smoking risk assessment performed?: Yes Alcohol Intake: current Alcohol Intake frequency: holidays/special occasions only Drug use: Current Sobriety Substance use type: marijuana Do you feel safe at home: Yes Do you feel safe in your relationship?: Yes Exam Narrative Exam Narrative: Constitutional: Alert and oriented x3. Appears stated age. Normal body habitus. Appears anxious. Head: Normocephalic, no trauma. Eyes: Pupils PERRLA, Red reflex noted, EOM's intact. Eyelids symmetrical without lesions, discharge, or swelling. ENT: Bilateral TM's WNL, External ear normal to inspection, no mastoid TTP, swelling, or erythema, Nasal turbinates WNL, no nasal discharge. Normal dentition, Posterior pharynx WNL, no exudate. Chest: RRR, Normal S1, S2, distal pulses intact. Tenderness to palpation of the right anterior chest wall, just below right breast. Resp: Lungs clear to auscultation bilaterally, no wheezes, rales, or rhonchi. Musculoskeletal: Normal gait, 5/5 strength to all four extremities. Skin: No suspicious rashes or lesions. Capillary refill less than 2 sec. Neurologic: Cranial nerves II-XII intact. Alert and oriented x 3. Hematologic/Lymphatic: No ecchymosis, no lymphadenopathy. Course Vital Signs Vital signs: Vital Signs Temperature 36.4 C L 08/27/20 23:41 Pulse 78 08/27/20 23:41 Respiratory Rate 16 08/27/20 23:41 Blood Pressure 133/80 08/27/20 23:41 Pulse Oximetry 99 08/27/20 23:41 Temperature 36.4 C L 08/27/20 23:41 Temperature Source Skin 08/27/20 23:41 Pulse 78 08/27/20 23:41 Respiratory Rate 16 08/27/20 23:41 Respiratory Effort 08/27/20 23:49 Respiratory Depth Shallow 08/27/20 23:49 Respiratory Pattern Normal 08/27/20 23:49 Blood Pressure 133/80 08/27/20 23:41 Blood Pressure Position Sitting 08/27/20 23:41 Pulse Oximetry 99 08/27/20 23:41 Oxygen Delivery Method Room Air 08/27/20 23:41 Oxygen Flow Rate 0 08/27/20 23:41 Pain Level 9 08/27/20 23:49
--- NOTE | 2020-08-28 00:43 | DI.VRAD_ITS ---
PROCEDURE INFORMATION: Exam: XR Right Ribs Exam date and time: 08/27/2020 11:59 PM Age: 20 years old Clinical indication: Other: Right anterior rib pain TECHNIQUE: Imaging protocol: XR Right ribs. Views: 2 views. COMPARISON: No relevant prior studies available. FINDINGS: Bones/joints: No evidence of fracture in the right ribs. Intercostal spaces are normal. Negative for expansile or destructive lesion. Soft tissues: No abnormalities. IMPRESSION: No evidence of right rib fracture. PROCEDURE INFORMATION: Exam: XR Chest Exam date and time: 08/27/2020 11:59 PM Age: 20 years old Clinical indication: Other: Right anterior rib pain TECHNIQUE: Imaging protocol: XR of the chest. Views: 2 views. COMPARISON: No relevant prior studies available. FINDINGS: Lungs: Lungs are clear and well-expanded. Pulmonary vessels are not congested. Pleural spaces: Unremarkable. No pleural effusion. No pneumothorax. Heart/Mediastinum: Heart size normal. Normal mediastinal contours. Bones/joints: Clavicles appear intact. No evidence of thoracic spine compression fracture. Soft tissues: No evidence of chest wall emphysema. IMPRESSION: Negative for pneumothorax. No acute cardiopulmonary abnormality. Dictated and Authenticated by: Hernandez An MD. Ordering:THUY Coleman MD
[2020-08-28 00:51] VITALS: BP 133/80; PULSE 78; RESP 16; TEMP 36.4; O2SAT 99
== END 2020-08-28 00:50 | disposition home or self-care (01) ==
PROVIDERS: Emergency Provider Registered Nurse Emergency; PCP Family Medicine
DX: M94.0 Chondrocostal junction syndrome [Tietze] (principal)
CPT/HCPCS: 99283; 71046; 71100

== ENCOUNTER 2021-03-18 16:01 | Outpatient (CLI) | payer MEDICAID, SELFPAY ==
--- NOTE | 2021-03-18 | DI.US_ITS ---
Exam(s) US PELVIS TRANSVAGINAL EXAM: US PELVIS TRANSVAGINAL CLINICAL HISTORY: ABNL UTERINE BLEEDING,PELVIC PAIN,CHECK IUD PLACEMENT. TECHNIQUE: Transabdominal and transvaginal pelvic ultrasound was performed using standard protocol. COMPARISON: No exams were available for comparison FINDINGS: KIDNEYS: Kidneys are symmetric in size. No evidence of renal calculi. No evidence of hydronephrosis. No renal mass or cyst identified. UTERUS: Position: Anteverted. Size: 5.6 long by 3.3 AP by 5.2 transverse cm Endometrium: 0.3 cm. Normal for patient's menstrual status. There is an IUD in good position. Myometrium: Unremarkable. Cervix: Unremarkable. OVARIES: Right: 2.2 x 1.6 x 2 cm Cyst or mass: Small follicular cysts are present. Left: 4.7 x 2.6 x 4.7 cm Cyst or mass: 3.8 x 2 x 3.8 cm simple cyst on the left ovary. This likely reflects a functional cyst . DOPPLER: Color: Symmetric and uniform flow to both ovaries. No hyperemia. Duplex: Normal ovarian arterial waveforms visualized. CUL-DE-SAC: Free fluid: None. Other: None. IMPRESSION: 1. Normal sonographic appearance of the kidneys. 2. Normal-appearing uterus with endometrial stripe within normal limits. 3. IUD appears in good position. 4. Unremarkable bilateral ovaries. DATA REPOSITORY:
== END 2021-03-18 16:21 ==
PROVIDERS: PCP Family Medicine; Visit Provider Nurse Practitioner Family
DX: R10.2 Pelvic and perineal pain (principal); N93.8 Other specified abnormal uterine and vaginal bleeding; Z30.431 Encounter for routine checking of intrauterine contraceptive device; N83.292 Other ovarian cyst, left side
CPT/HCPCS: 76830; 76856

== ENCOUNTER 2021-08-24 11:06 | Outpatient (REF) | payer MEDICAID, SELFPAY ==
[2021-08-25 14:00] LABS: COVID-19 RT-PCR UVMMC Result Negative (Negative)
== END 2021-08-24 11:07 | disposition home or self-care (01) ==
LOC: LBN 11:06
PROVIDERS: PCP Family Medicine; Visit Provider Physician Assistant
DX: Z20.822 Contact with and (suspected) exposure to COVID-19 (principal)
CPT/HCPCS: U0003

== ENCOUNTER 2022-12-24 11:25 | Emergency (ER) | payer SELFPAY ==
[2022-12-24 11:52] VITALS: BP 124/77; PULSE 81; RESP 20; TEMP 36.8; O2SAT 98
--- NOTE | 2022-12-24 12:25 | ED.GENADUL_ITS ---
Discharge Plan Disposition Patient Disposition: Home Condition: Stable Discharge Details Clinical Impression: Sinusitis Primary Care Provider: Deondre Marion ED Provider: Virginia Cox Home Meds and New Rx's Prescriptions: New amoxicillin-pot clavulanate 875-125 mg tablet 1 tab PO BID 7 Days Qty: 14 0RF Rx Instructions: Take one tablet by mouth twice daily x 7 days amoxicillin-pot clavulanate 875-125 mg tablet 1 tab PO BID 7 Days Qty: 14 0RF No Action escitalopram oxalate 10 mg Tablet 10 mg PO DAILY Discharge Instructions Instructions: Sinusitis (ED) Additional Instructions: Take the antibiotic as directed, use Flonase over the counter. Take the tessolon perrles as needed for cough. Follow up with primary care provider in 3-5 days. Return to ED sooner if any worsening or concerns. Increase oral fluids. Please take Tylenol or Ibuprofen with food every 4-6 hours as needed for pain and swelling. Referrals: Deondre Marion [Primary Care Provider] - 5 days Medical Decision Making 22 year old female presents with URI type symptoms x 2 weeks, reports sinus pressure, ear pain, and sore throat. Denies fever. Is a daily smoker. Patient discharged with Tessalon Perles and Augmentin. This text was generated using [employer] dictation system, please disregard any oddities of phrase or misspellings. HPI General Mode of arrival: ambulatory . Date/Time Provider Initiated Documentation: 12/24/22 12:00 . Limitations to Documentation: no limitations . Information obtained by: patient, RN notes reviewed and old records reviewed . HPI Narrative: 22 year old female presents with URI type symptoms x 2 weeks, reports sinus pressure, ear pain, and sore throat. Denies fever. Is a daily smoker. Related Data Home Medications Medication Instructions Recorded Confirmed escitalopram oxalate 10 mg tablet 10 mg PO DAILY 01/08/20 12/24/22 amoxicillin 875 mg-potassium 1 tab PO BID 7 days #14 tabs 12/24/22 clavulanate 125 mg tablet amoxicillin 875 mg-potassium 1 tab PO BID Sinusitis 7 days #14 12/24/22 clavulanate 125 mg tablet tabs Previous Rx's Medication Instructions Recorded amoxicillin 875 mg-potassium 1 tab PO BID 7 days #14 tabs 12/24/22 clavulanate 125 mg tablet amoxicillin 875 mg-potassium 1 tab PO BID Sinusitis 7 days #14 12/24/22 clavulanate 125 mg tablet tabs Allergies Allergy/AdvReac Type Severity Reaction Status Date / Time No Known Allergies Allergy Unverified 12/24/22 11:56 General Stated Complaint: RespSymp CHARISMA: 4 Review of Systems All systems reviewed & are unremarkable except as noted in HPI and below ENT Ears, Nose, Mouth, and Throat: Reports as per HPI, Reports otalgia, Reports sinu s pain, Reports sinus pressure and Reports sore throat PFSH All Active Problems (Updated 12/24/22 @ 12:31 by Virginia Cox NP) Sinusitis (Acute) Acute costochondritis (Acute) Parotiditis (Acute) Nicotine dependence (Acute) Discharge planning issues (Acute) DVT prophylaxis (Acute) Depression (Chronic) Medical History (Updated 12/24/22 @ 12:31 by Virginia Cox NP) Mood swings Surgical History No significant past surgical history Social History Smoking/Tobacco Use Status: Current every day Tobacco Type: cigarettes Years smoked: 3 Smoking risk assessment performed?: Yes Alcohol Intake: current Alcohol Intake frequency: holidays/special occasions only Drug use: Current Sobriety Substance use type: marijuana Do you feel safe at home: Yes Do you feel safe in your relationship?: Yes Exam Narrative Exam Narrative: Constitutional: Alert and oriented x3. Appears stated age. Normal body habitus. Head: Normocephalic, no trauma. Eyes: Pupils PERRL, Red reflex noted, EOM's intact. Eyelids symmetrical without lesions, discharge, or swelling. ENT: Bilateral TM's WNL, External ear normal to inspection, no mastoid TTP, swelling, or erythema, Nasal turbinates WNL, no nasal discharge. Normal dentition, Posterior pharynx WNL, no exudate. Chest: RRR, Normal S1, S2, distal pulses intact. Resp: Lungs clear to auscultation bilaterally, no wheezes, rales, or rhonchi. Abdomen: Soft, non-distended, Normoactive bowel sounds all 4 quads. Musculoskeletal: Normal gait, 5/5 strength to all four extremities. Skin: No suspicious rashes or lesions. Capillary refill less than 2 sec. Neurologic: Cranial nerves II-XII intact. Alert and oriented x 3. Motor: No deficits noted. Sensory: Intact bilaterally all 4 extremities. Reflexes: DTR's intact bilaterally.. Hematologic/Lymphatic: No ecchymosis, no lymphadenopathy. Course Vital Signs Vital signs: Vital Signs Temperature 36.8 C 12/24/22 11:52 Pulse 81 12/24/22 11:52 Respiratory Rate 20 12/24/22 11:52 Blood Pressure 124/77 12/24/22 11:52 Pulse Oximetry 98 12/24/22 11:52 Temperature 36.8 C 12/24/22 11:52 Temperature Source Skin 12/24/22 11:52 Pulse 81 12/24/22 11:52 Respiratory Rate 20 12/24/22 11:52 Blood Pressure 124/77 12/24/22 11:52 Blood Pressure Position Sitting 12/24/22 11:52 Pulse Oximetry 98 12/24/22 11:52 Oxygen Delivery Method Room Air 12/24/22 11:52 Oxygen Flow Rate 0 12/24/22 11:52 Pain Level 0 12/24/22 11:52
[2022-12-24] MEDS: Amox. 875/Clav. 125, 2 TABS/BTL 1 TAB PO (12:39)
[2022-12-24] MEDS: Amoxicillin 875/Clav. 125 TAB PO (12:39)
[2022-12-24] MEDS: Benzonatate 100 MG CAP PO ×2 (12:39→12:40)
--- NOTE | 2022-12-26 10:17 | NUR.NOTE ---
Accessed chart to get the patient address to mail a prescription to her. Nursing Note:
== END 2022-12-24 12:54 | disposition home or self-care (01) ==
PROVIDERS: Emergency Provider Registered Nurse Emergency; PCP Family Medicine
DX: J32.9 Chronic sinusitis, unspecified (principal)
CPT/HCPCS: 87635; 87880; 99283

== ENCOUNTER 2023-07-26 18:35 | Emergency (ER) | payer SELFPAY ==
[2023-07-26 18:44] VITALS: BP 118/61; PULSE 68; RESP 18; TEMP 36.8; O2SAT 100
--- NOTE | 2023-07-26 19:30 | RT.EKG_ITS ---
APPROVED REPORT Exam: Resting ECG Reason for Exam: chest tighness Patient Location: E HR:67 bpm ECG Measurements Heart Rate 67 AXIS TN 166 P 38 QRSd 87 QRS 73 QT 366 T 39 QTc 386 Conclusion Sinus rhythm...normal P axis, V-rate 60- 99 sinus rhtyhm, normal axis, normal intervals, non ischemic
--- NOTE | 2023-07-26 19:42 | ED.GENADUL_ITS ---
Discharge Plan Disposition Patient Disposition: Home Condition: Improving Discharge Details Chief Complaint: RespSymp Clinical Impression: Viral URI, Pharyngitis Primary Care Provider: Deondre Marion ED Provider: Deondre Patel Home Meds and New Rx's Prescriptions: No Action No Known Home Meds Discharge Instructions Instructions: Viral Pharyngitis, Upper Respiratory Infection ED Stand Alone Forms: Work Release HPI General Date/Time Provider Initiated Documentation: 07/26/23 19:08 . HPI Narrative: 23-year-old female presents with sore throat chest congestion swollen cervical glands and lightheadedness over the last couple of days. Related Data Home Medications Medication Instructions Recorded Confirmed Unknown [No Known Home Meds] 07/26/23 07/26/23 Allergies Allergy/AdvReac Type Severity Reaction Status Date / Time No Known Allergies Allergy Unverified 07/26/23 18:48 General Stated Complaint: RespSymp CHARISMA: 4 Review of Systems Narrative: Review of Systems Constitutional: negative Eyes: negative ENT: Sore throat Cardiovascular: Lightheadedness Respiratory: negative Gastrointestinal: negative : negative Musculoskeletal: negative Skin: negative Neurologic: negative Psych: negative Exam Narrative Exam Narrative: Physical Examination General: alert, awake, cooperative, resting comfortably, no acute distress HEENT: normocephalic, atraumatic; PERRL, EOM intact, conjunctiva normal; no nasal discharge; moist mucous membranes, oral and pharyngeal mucosa normal, tolerating secretions Neck: supple, trachea midline; full ROM Chest: normal to inspection Respiratory: normal respiratory effort, speaking in full sentences, clear to auscultation, no wheezing, rales or rhonchi Cardiac: regular rate, regular rhythm, S1S2 intact, no murmurs rubs or gallops GI: abdomen soft, non-tender, non-distended; no palpable mass or hepatosplenomegaly Skin: no lesions, rashes or trauma appreciated Neuro: AAOx3, normal speech, moving all extremities Psych: Appropriate mood and affect Course Vital Signs Vital signs: Vital Signs Temperature 36.8 C 07/26/23 18:44 Pulse 68 07/26/23 18:44 Respiratory Rate 18 07/26/23 18:44 Blood Pressure 118/61 07/26/23 18:44 Pulse Oximetry 100 07/26/23 18:44 Temperature 36.8 C 07/26/23 18:44 Temperature Source Temporal Artery Scan 07/26/23 18:44 Pulse 68 07/26/23 18:44 Respiratory Rate 18 07/26/23 18:44 Respiratory Effort Normal, Non-Labored 07/26/23 18:47 Blood Pressure 118/61 07/26/23 18:44 Blood Pressure Position Sitting 07/26/23 18:44 Pulse Oximetry 100 07/26/23 18:44 Oxygen Delivery Method Room Air 07/26/23 18:44 Oxygen Flow Rate 0 07/26/23 18:44 Pain Level 0 07/26/23 18:44 Medical Decision Making 23-year-old female presents with 2 days of sore throat swollen cervical lymphadenopathy, chest congestion lightheadedness. No history of thromboembolic disease or coronary disease, patient does smoke cigarettes daily. Not hypoxic afebrile nontoxic speaking full sentences, EKG normal sinus rhythm normal axis nonischemic, oropharynx unremarkable no exudate, midline uvula tolerating secretions normal voice, consider viral URI versus viral pharyngitis was also consider strep pharyngitis lower suspicion for pneumonia ACS PE or aortic pathology. Will obtain urine test EKG trial of dexamethasone and albuterol inhaler. Likely home with home care instructions and return precautions 20: 40 patient resting comfortably no acute distress, [id number] urine negative [id number] strep negative, hemodynamically stable. Quality:SDOH Health Related Social Needs: No Data to Display PFSH All Active Problems (Updated 07/26/23 @ 20:42 by Deondre Patel MD) Pharyngitis (Acute) Viral URI (Acute) Acute costochondritis (Acute) Parotiditis (Acute) Nicotine dependence (Acute) Discharge planning issues (Acute) DVT prophylaxis (Acute) Depression (Chronic) Medical History (Updated 07/26/23 @ 20:42 by Deondre Patel MD) Mood swings Surgical History No significant past surgical history Social History Smoking/Tobacco Use Status: Current every day Tobacco Type: cigarettes Smoking packs per day: 0.5 Smoking cigarettes per day: 10.0 Years smoked: 7 Smoking pack-years: 3.50 Smoking risk assessment performed?: Yes Alcohol Intake: current Alcohol Intake frequency: holidays/special occasions only Drug use: Occasionally Substance use type: marijuana Do you feel safe at home: Yes Do you feel safe in your relationship?: Yes
[2023-07-26] MEDS: Albuterol HFA 8 GM 60 PUFF INH IH (19:46)
[2023-07-26] MEDS: Inhaler, Assist Device 1 EACH MC (19:46)
[2023-07-26 20:54] VITALS: BP 115/70; PULSE 70; RESP 16
== END 2023-07-26 20:55 | disposition home or self-care (01) ==
PROVIDERS: Emergency Provider Emergency Medicine; PCP Family Medicine
DX: J06.9 Acute upper respiratory infection, unspecified (principal); B97.89 Other viral agents as the cause of diseases classified elsewhere; J02.9 Acute pharyngitis, unspecified; F17.210 Nicotine dependence, cigarettes, uncomplicated
CPT/HCPCS: 81025; 87880; 93005; 99283; 93010

== ENCOUNTER 2024-03-07 22:24 | Outpatient (REF) | payer MEDICAID, SELFPAY ==
[2024-03-07 22:34] LABS: COVID-19 PCR Negative (Negative); Influenza A PCR Negative (Negative); Influenza B PCR Negative (Negative); RSV PCR Negative (Negative)
[2024-03-07 22:36] LABS: Source NASOPHARYNX
== END 2024-03-07 22:25 | disposition home or self-care (01) ==
LOC: LBN 22:24
PROVIDERS: PCP Family Medicine; Visit Provider Physician Assistant Medical
DX: R11.2 Nausea with vomiting, unspecified (principal)
CPT/HCPCS: 87637

== ENCOUNTER 2024-03-26 14:52 | Outpatient (CLI) | payer MEDICAID, SELFPAY ==
--- NOTE | 2024-03-26 | DI.RAD_ITS ---
Exam(s) XR TOE LT FOURTH EXAM: XR TOE LT FOURTH CLINICAL HISTORY: M79.675 Pain left toes, 4th toe left. TECHNIQUE: 2D digital imaging was performed. COMPARISON: No exams were available for comparison FINDINGS: BONES: There is a tiny round density at the medial aspect of the DIP joint of the 4th toe. There do es appear to be a corresponding defect in the base of the distal phalanx. A small avulsed fracture s hould be considered. This is of indeterminate acuity. Please correlate with the patient's clinical history. No bony destructive lesion is seen. JOINTS: No dislocation present. SOFT TISSUE: Normal. IMPRESSION: Tiny osseous density at the medial aspect of the DIP joint of the 4th finger with a corresponding def ect in the base of the distal phalanx. This may represent a small avulsed fracture. This is of inde terminate acuity. Please correlate the patient's clinical history. DATA REPOSITORY: RADIATION DOSE DELIVERED:
== END 2024-03-26 15:12 ==
LOC: DI 14:52
PROVIDERS: PCP Family Medicine; Visit Provider Nurse Practitioner Family
DX: M79.675 Pain in left toe(s) (principal)
CPT/HCPCS: 73660

== ENCOUNTER 2024-03-30 14:22 | Emergency (ER) | payer MEDICAID, SELFPAY ==
[2024-03-30 14:27] VITALS: BP 131/67; PULSE 84; RESP 15; TEMP 37.2; O2SAT 98
--- NOTE | 2024-03-30 14:28 | W.ED.GENAD ---
Discharge Plan Disposition Patient Disposition: Home Condition: Good Discharge Details Clinical Impression: Paresthesia of left foot Primary Care Provider: Deondre Marion ED Provider: Juan Navas Home Meds and New Rx's Prescriptions: No Action No Known Home Meds Discharge Instructions Additional Instructions: There is no evidence of circulatory or nerve deficit. The numb/tingling feeling might be related to the post op boot and positioning. Recommend crystal tape as shown, elevate foot when you can, switch back to using your regular sneakers. Follow up with PCP in 1-2 weeks for recheck. Return to ED with concerns. Referrals: Deondre Marion [Primary Care Provider] - [facility] General Mode of arrival: ambulatory. Date/Time Provider Initiated Documentation: 03/30/24 14:28. Limitations to Documentation: no limitations. Information obtained by: patient, RN notes reviewed and old records reviewed. HPI Narrative: Patient presents to ED with concern due to left foot numbness/pain and discoloration. Patient currently wearing a postop shoe after injury 1 week ago. She was seen at urgent care and was told she had a fracture to the fourth toe of the left foot. She has been wearing a postop shoe since then and crystal taping her toes together. She has noticed that her left foot has been numb and painful from midfoot down over the last few days. She noted when she got out of the shower that the distal left foot was also very white. She reports having very cold feet and hands at baseline. Hands gurdeep white whenever they are placed in a cold environment. She, however, has not experienced numbness/tingling/pain that she is having in her foot in the past. Related Data Home Medications ?Medication ?Instructions ?Recorded ?Confirmed Unknown [No Known Home Meds] 07/26/23 03/30/24 Allergies Allergy/AdvReac Type Severity Reaction Status Date / Time No Known Allergies Allergy Unverified 03/30/24 14:30 General CHARISMA: 4 Exam Narrative Exam Narrative: Const: WDWN female in NAD. VS per triage. HEENT: NC/AT. Normal facial exam. Neck: Supple. Trachea midline. Lungs: Normal respiratory effort. Neuro: A+O x 3. Normal speech, mentation, gait. Cranial nerves II - XII grossly intact. No gross motor or sensory deficit. Ext: Left foot with normal pulses and cap refill. Bruising of the fourth toe noted. Sensation and strength is in tact. Medical Decision Making Patient presenting because of concerns of a numbing type pain to the distal part of the left foot status post fourth toe injury a week ago. Reports that her hands and feet are always cold and that her hands typically gurdeep white when they are exposed to cold. Her left foot is cold to touch but has a good DP and PT pulse as well as cap refill. Strength and sensation is intact. There is bruising noted to the fourth toe. I reviewed the x-rays from a week ago. There is a defect of the proximal portion of the distal phalange E. Does not look like definitive fracture which is also how final read per radiology describes finding. She has been wearing a postop shoe which is open toed with thin socks. Suspect this may have more to do with the sensation in her foot given her predisposition in regards to cold exposure to her hands and feet. Patient shown how to crystal tape fourth toe to third toe for protection. Instructed to begin wearing her supportive sneakers as opposed to the postop shoe and to keep her leg elevated when she can. Ibuprofen or acetaminophen for pain. Follow-up with primary care in 1 to 2 weeks for recheck if not improving. Return to ED for concerns. Medical Records Medical records reviewed: Yes I reviewed the patient's medical records. Medical records narrative: previous x-ray Imaging Data Radiologic Study: Attestation: I personally reviewed and interpreted this imaging study as follows: Imaging: X-Ray My impression: indeterminate defect proximal end of distal phalange of fourth toe, not a definitive fx PFSH All Active Problems (Updated 03/30/24 @ 14:51 by Juan Navas MD) Paresthesia of left foot (Acute) Mood swings (Acute) Nicotine dependence (Acute) Medical History Depression Surgical History No significant past surgical history Social History Smoking/Tobacco Use Status: Current every day Tobacco Type: cigarettes Smoking packs per day: 0.5 Smoking cigarettes per day: 10.0 Years smoked: 7 Smoking pack-years: 3.50 Smoking risk assessment performed?: Yes Alcohol Intake: current Alcohol Intake frequency: holidays/special occasions only Drug use: Occasionally Substance use type: marijuana Do you feel safe at home: Yes Do you feel safe in your relationship?: Yes
== END 2024-03-30 15:17 | disposition home or self-care (01) ==
PROVIDERS: Emergency Provider Emergency Medicine; PCP Family Medicine
DX: R20.2 Paresthesia of skin (principal); F17.210 Nicotine dependence, cigarettes, uncomplicated
CPT/HCPCS: 99282; 99283

== ENCOUNTER 2024-08-06 21:13 | Outpatient (REF) | payer MEDICAID, SELFPAY | END 2024-08-06 21:14 | disposition home or self-care (01) | LOC: LBN 21:13 | PROVIDERS: PCP Family Medicine; Visit Provider Physician Assistant Medical | DX: J02.9 Acute pharyngitis, unspecified (principal) | CPT/HCPCS: 87070 ==

== ENCOUNTER 2024-08-11 10:21 | Emergency (ER) | payer MEDICAID, SELFPAY ==
[2024-08-11 10:42] VITALS: BP 128/92; PULSE 64; RESP 18; TEMP 36.8; O2SAT 98
[2024-08-11 10:54] VITALS: RESP 17
[2024-08-11 11:28] LABS: Glucose Negative (Negative)
--- NOTE | 2024-08-11 11:30 | ED.GENADUL_ITS ---
Discharge Plan Disposition Patient Disposition: Home Condition: Stable Discharge Details Clinical Impression: Sinus congestion, Upper respiratory infection, viral Primary Care Provider: Deondre Marion ED Provider: Virginia Cox Home Meds and New Rx's Prescriptions: No Action No Known Home Meds Discharge Instructions Instructions: Cough, runny nose, and the common cold Additional Instructions: At this time I do believe that you have some sinus congestion and a viral URI. Please increase oral fluids. Take lzca-eye-ldybusx decongestant such as DayQuil or similar. Gargle with warm salt water up to 3 times daily as needed. No evidence for anemia or abnormality on your CBC your white blood cell count. Please follow-up with your primary care provider regarding the iron studies and iron deficiency anemia. Please take a multivitamin if needed. Practice a good diet. Increase oral fluids. Follow up with primary care provider in 3-5 days. Return to ED sooner if any worsening or concerns. You may call the below primary care provider to establish care. Please take Tylenol or Ibuprofen with food every 4-6 hours as needed for pain and swelling. Stand Alone Forms: Work Release Referrals: Jose Angel Santana MD [ [facility] STAFF PHYSICIAN, Medicine] - 1 week Referral Note: New patient ER follow up Clinical Impression: Sinus congestion; Upper respiratory infection, viral Discharge Data Discharge Date/Time-TO BE ENTERED AT DEPARTURE: 08/11/24 13:06 HPI General Mode of arrival: ambulatory . Date/Time Provider Initiated Documentation: 08/11/24 11:05 . Limitations to Documentation: no limitations . Information obtained by: patient, RN notes reviewed and old records reviewed . HPI Narrative: 24-year-old female presents to the ER with a chief complaint of URI type symptoms for the last 4 days after camping out at [facility]. She did not get in the water. She reports that she has been dizzy, intermittent visual disturbances, frontal headache and posterior occipital headache. Was sent to [facility] care had a negative rapid flu RSV and COVID swab and sent here. She de nies any cough productive cough or shortness of breath. She reports ear fullness, throat pain and runny nose and congestion. Related Data Home Medications ?Medication ?Instructions ?Recorded ?Confirmed Unknown [No Known Home Meds] 07/26/23 0 08/11/24 Allergies Allergy/AdvReac Type Severity Reaction Status Date / Time No Known Allergies Allergy Unverified 08/11/24 10:46 General Stated Complaint: Dizzy/Sync CHARISMA: 3 Review of Systems All systems reviewed & are unremarkable except as noted in HPI and below Constitutional Constitutional: Reports as per HPI, Reports fatigue, Reports headache(s), Reports lethargy and Reports poor appetite ENT Ears, Nose, Mouth, and Throat: Reports as per HPI, Reports dizziness, Reports otalgia, Reports headache(s), Reports nasal congestion, Reports post nasal drip, Reports sinus pain, Reports sinus pressure and Reports sore throat Neurologic Neurologic: Reports dizziness and Reports headache(s) Endocrine Endocrine: Reports fatigue Exam Narrative Exam Narrative: Constitutional: Alert and oriented x3. Appears stated age. Normal body habitus. Head: Normocephalic, no trauma. Eyes: Pupils PERRL, Red reflex noted, EOM's intact. Eyelids symmetrical without lesions, discharge, or swelling. ENT: Left TM is retracted no bulging or erythema, right TM shows serous effusion no erythema, external ear normal to inspection, no mastoid TTP, swelling, or erythema, Nasal turbinates boggy, no nasal discharge. Normal dentition, Posterior pharynx WNL, slightly erythemic, no exudate. Chest: RRR, Normal S1, S2, distal pulses intact. Resp: Lungs clear to auscultation bilaterally, no wheezes, rales, or rhonchi. Abdomen: Soft, non-distended, Normoactive bowel sounds all 4 quads. Musculoskeletal: Normal gait, Moves all 4 extremities without difficulty. Skin: No suspicious rashes or lesions. Capillary refill less than 2 sec. Neurologic: Cranial nerves II-XII intact. Alert and oriented x 3. Motor: No deficits noted. Sensory: Intact bilaterally all 4 extremities. Hematologic/Lymphatic: No ecchymosis, no lymphadenopathy. Course Vital Signs Vital signs: Vital Signs Temperature 36.8 C 08/11/24 10:42 Pulse 64 08/11/24 10:42 Respiratory Rate 18 08/11/24 10:42 Blood Pressure 128/92 H 08/11/24 10:42 Pulse Oximetry 98 08/11/24 10:42 Temperature 36.8 C 08/11/24 10:42 Temperature Source Oral 08/11/24 10:42 Pulse 64 08/11/24 10:42 Respiratory Rate 17 08/11/24 10:54 Respiratory Effort Normal, Non-Labored 08/11/24 10:54 Respiratory Depth Normal 08/11/24 10:54 Respiratory Pattern Normal 08/11/24 10:54 Blood Pressure 128/92 H 08/11/24 10:42 Pulse Oximetry 98 08/11/24 10:42 Oxygen Delivery Method Room Air 08/11/24 10:42 Oxygen Flow Rate 0 08/11/24 10:42 Pain Level 6 08/11/24 10:42 Medical Decision Making 24-year-old female presents to the ER with a chief complaint of URI type s ymptoms for the last 4 days after camping out at [facility]. She did not get in the water. She reports that she has been dizzy, intermittent visual disturbances, frontal headache and posterior occipital headache. Was sent to [facility] care had a negative rapid flu RSV and COVID swab and sent here. She denies any cough productive cough or shortness of breath. She reports ear fullness, throat pain and runny nose and congestion. Patient is not orthostatic here in the department, no leukocytosis hemoglobin hematocrit within normal limits, iron added on for patient follow-up with PCP. Will diagnosed with viral URI and discussed pnoo-jay-wqjjdvd decongestants such as DayQuil or similar. Gargling with warm salt water we will call with results if COVID and flu RSV are positive. At this time they are pending. Patient has remained hemodynamically stable throughout the remainder of her stay. Fluvid swab is negative. This text was generated using [employer] dictation system, please disregard any oddities of phrase or misspellings. Lab Data Labs: Laboratory Tests Range/Units 08/11/24 08/11/24 08/11/24 11:05 11:50 12:15 WBC (4.4-10.8) 10^3/uL 6.90 RBC (3.93-5.22) 10^6/uL 4.47 Hgb (11.2-15.7) g/dL 14.3 Hct (36.0-46.0) % 41.3 MCV (80-95) fL 92 MCH (27.0-33.0) pg 32.0 MCHC (32.0-36.0) % 34.6 RDW (11.7-14.6) % 11.9 Plt Count (130-400) 10^3/uL 274 MPV (8.0-11.0) fL 8.9 Sodium (136-145) mmol/L 141 Potassium (3.5-5.1) mmol/L 4.1 Chloride (98-107) mmol/L 103 Carbon Dioxide (21.0-32.0) mmol/L 29.5 Anion Gap (3-11) mmol/L 8.5 BUN (7-18) mg/dL 12 Creatinine (0.55-1.02) mg/dL 0.6 Est GFR (CKD-EPI 2020) (mL/min/1.73m2) 127.67 Glucose (74-106) mg/dL 98 Calcium (8.5-10.1) mg/dL 9.2 Iron (50-170) ug/dL 86 TIBC (250-450) ug/dL 353 Transferrin % Sat (15-50) % 24 Urine Color (Yellow) Other Urine Clarity (Clear) Clear Urine pH (5-8) 7.0 Ur Specific [place] (1.005-1.025) 1.015 Urine Protein (Neg-Trace) mg/dL Negative Urine Ketones (Negative) mg/dL Negative Urine Blood (Negative) Negative Urine Nitrite (Negative) Negative Urine Bilirubin (Negative) Negative Urine Urobilinogen (Up to 0.2) mg/dL 0.2 Ur Leukocyte Esterase (Negative) Negative Urine Glucose (Negative) mg/dL Negative COVID-19 Source Nasopharynx SARS-CoV-2 (PCR) (Negative) Negative Influenza Type A (PCR) (Negative) Negative Influenza Type B (PCR) (Negative) Negative RSV (PCR) (Negative) Negative PFSH All Active Problems Upper respiratory infection, viral (Acute) Sinus congestion (Acute) Mood swings (Acute) Nicotine dependence (Acute) Medical History Depression Surgical History No significant past surgical history Social History Smoking/Tobacco Use Status: Current every day Tobacco Type: cigarettes Smoking packs per day: 0.5 Smoking cigarettes per day: 10.0 Years smoked: 7 Smoking pack-years: 3.50 Smoking risk assessment performed?: Yes Alcohol Intake: current Alcohol Intake frequency: holidays/special occasions only Drug use: Occasionally Substance use type: does not use Do you feel safe at home: Yes Do you feel safe in your relationship?: Yes
[2024-08-11] MEDS: Normal Saline 1,000 ML 1000 ML IV (11:46)
[2024-08-11 11:59] LABS: HCT 41.3 % (36.0-46.0); HGB 14.3 g/dL (11.2-15.7); MCH 32.0 pg (27.0-33.0); MCHC 34.6 % (32.0-36.0); MCV 92 fL (80-95); MPV 8.9 fL (8.0-11.0); Platelet Count 274 10^3/uL (130-400); RBC 4.47 10^6/uL (3.93-5.22); RDW 11.9 % (11.7-14.6); RDW-SD 40.5 fL; WBC 6.90 10^3/uL (4.4-10.8)
[2024-08-11 12:07] LABS: Anion Gap 8.5 mmol/L (3-11); BUN 12 mg/dL (7-18); CO2 29.5 mmol/L (21.0-32.0); Calcium 9.2 mg/dL (8.5-10.1); Chloride 103 mmol/L (98-107); Estimated GFR 127.67 (mL/min/1.73m2); Glucose 98 mg/dL (74-106); Potassium 4.1 mmol/L (3.5-5.1); Sodium 141 mmol/L (136-145)
[2024-08-11 12:41] VITALS: BP 110/72; BP 111/76; BP 119/79; PULSE 60; PULSE 61; PULSE 64
[2024-08-11 13:02] LABS: COVID-19 PCR Negative (Negative); RSV PCR Negative (Negative)
[2024-08-11 13:44] LABS: Iron 86 ug/dL (50-170); Total Iron Binding Capacity 353 ug/dL (250-450); Transferrin Sat 24 % (15-50)
== END 2024-08-11 13:06 | disposition home or self-care (01) ==
PROVIDERS: Emergency Provider Registered Nurse Emergency; PCP Family Medicine
DX: R09.81 Nasal congestion (principal); J06.9 Acute upper respiratory infection, unspecified; B97.89 Other viral agents as the cause of diseases classified elsewhere; F17.210 Nicotine dependence, cigarettes, uncomplicated
CPT/HCPCS: 80048; 81025; 85027; 87637; 99283; 81003; 83540; 83550